=== PATIENT | female | born 1990 | race Caucasian/White ===

== ENCOUNTER 2022-04-25 10:38 | Emergency (ER) | payer OTHER, SELFPAY ==
--- NOTE | ~2022-04-25 | XR_ITS ---
EXAMINATION: XR lumbar spine min 4V DATE: 04/25/2022 12:59 INDICATION: Low back pain. TECHNIQUE: 5 views of lumbar spine were obtained. COMPARISON: None. FINDINGS: Bone alignment is normal. Vertebral body heights and intervertebral disc heights are normal . The facet joints are normal. IMPRESSION: 1. Normal lumbar spine. Reviewed, dictated and finalized at location A. IMPRESSION: 1. Normal lumbar spine.
[2022-04-25 11:03] VITALS: BP 116/80; PULSE 79; RESP 18; TEMP 36.8; O2SAT 98
--- NOTE | 2022-04-25 12:46 | ED.BACK ---
HPI - Back Pain/Injury General Chief Complaint: Back Pain/Injury Stated Complaint: L FLANK PAIN Time Seen by Provider: 04/25/22 11:13 Source: patient Mode of arrival: ambulatory Limitations: no limitations History of Present Illness HPI Narrative: Patient is a 31-year-old female who presents the ED with report of left lower back pain. Patient reports she woke up Monday morning with the pain. She states she has been trying to work out lately, but denies any known injury or heavy lifting, aside from lifting her toddler. She denies any other unusual activity. She has been taking ibuprofen at home with minimal relief. Reports pain is worse with twisting in certain directions, bending over, straightening left leg while sitting. No bowel or bladder incontinence, saddle anesthesia, weakness of legs, dysuria, hematuria, abdominal pain, nausea, vomiting. Related Data Allergies Allergy/AdvReac Type Severity Reaction Status Date / Time No Known Allergies Allergy Verified 04/25/22 11:33 Review of Systems Review of Systems: CONSTITUTIONAL: Denies fever, chills, or sweats. CARDIOVASCULAR: Denies chest pain. RESPIRATORY: Denies dyspnea. GASTROINTESTINAL: Denies abdominal pain, incontinence, nausea, vomiting, or diarrhea. GENITOURINARY: Denies incontinence, dysuria or hematuria. MUSCULOSKELETAL: Reports L lower back pain. NEUROLOGIC: Denies tingling, numbness, or weakness. All systems reviewed & are unremarkable except as noted in HPI and below PMFSH Past Medical History Medical History (Updated 04/25/22 @ 13:11 by Karolyn Oro PA-C) No pertinent past medical history Surgical History Surgical History (Updated 04/25/22 @ 13:11 by Karolyn Oro PA-C) No pertinent past surgical history Social History Social History (Updated 04/25/22 @ 13:11 by Karolyn Oro PA-C) Smoking status: Never smoker Exam Narrative: GENERAL: Well appearing, well-nourished, non-toxic, in no acute distress. HEAD: Normocephalic, atraumatic. NECK: Supple. No adenopathy, no masses. RESPIRATORY: Airway patent, respirations nonlabored. Clear to auscultation bilaterally, no rales, rhonchi, wheezing. CARDIOVASCULAR: Regular rate and rhythm without murmurs, rubs, or gallops. Peripheral pulses 2+ and equal bilaterally. ABDOMINAL: Soft, nontender, nondistended, no hepatosplenomegaly. Normoactive BS. MUSCULOSKELETAL: Moves all extremities. Strength/ROM intact without gross deformities. No midline thoracic or lumbar spinal tenderness. TTP in L sided lumbosacral region, point tenderness over L SI joint. + SLR on L. SKIN: Warm, dry, normal color. No rashes. NEURO: A&O X3. Speech clear. Cranial nerves II-XII grossly intact. Steady gait. No ataxic movements. Strength equal in lower extremities bilaterally. PSYCHIATRIC: Appropriate mood and affect. Normal interaction. Course Vital Signs Vital signs: Vital Signs Temperature 98.3 F 04/25/22 11:03 Pulse Rate 79 04/25/22 11:03 Respiratory Rate 18 04/25/22 11:03 Blood Pressure 116/80 04/25/22 11:03 Pulse Oximetry 98 04/25/22 11:03 Oxygen Delivery Room Air 04/25/22 11:03 Temperature 98.3 F 04/25/22 11:03 Pulse Rate 79 04/25/22 11:03 Respiratory Rate 18 04/25/22 11:03 Blood Pressure 116/80 04/25/22 11:03 Pulse Oximetry 98 04/25/22 11:03 Oxygen Delivery Room Air 04/25/22 11:03 MDM - Back Pain/Injury MDM Narrative Medical decision making narrative: Patient's pain is positional and localized to paraspinal muscles without signs of cord compression or cauda equina. Normal neurologic exams. No fever noted and no significant risk factors for osteomyelitis or spinal epidural abscess. No symptoms or signs to suggest pain is referred from abdominal or source. Patient ambulates with a steady gait and is felt to be a reasonable candidate for continued outpatient management. She has a follow-up appointment with her primary care doctor this Monday. Will pre
== END 2022-04-25 13:28 | disposition home or self-care (01) ==
PROVIDERS: Emergency Provider Emergency Medicine
DX: S39.012A Strain of muscle, fascia and tendon of lower back, initial encounter (principal); X58.XXXA Exposure to other specified factors, initial encounter
CPT/HCPCS: 72110; 99283

== ENCOUNTER 2025-04-30 10:32 | Emergency (ER) | payer MEDICAID, SELFPAY ==
--- OUTSIDE RECORDS SUMMARY | 2007-12-13 11:00 | XMS_ITS | Continuity of Care Document ---
Author Organization [employer] [facility] Address [address] [place] [address] Phone Care Team Providers Care Registration Manager Name Role Phone No Information Unavailable Unavailable Allergies, Adverse Reactions, Alerts Substance Reaction Status Criticality No Known Allergies Active No Inform ation Medications Medication Instructions Dosage Effective Dates (start - stop) Status Comments PLUS 27 MG-1 MGTABLET PLUS-27 MG IRON<><> 1 TAB by mouth (PO) every day.<><> Before meals.<> Take until all medication is finished.<><>DISPENSE: 30 day supply.<>REFILLS: 12<>Provider: VAL CHARLES NP<>[facility]><> - Active Procedures Procedure Date URNLS DIP STICK/TABLET RGNT AUTO W/O JENNIFER CHYLMD TRACH, DNA, AMP PROBE PERIODIC COMPREHENSIVE PREVENTIVE MED RE E/M; ESTABLISHED PATIENT; 07-02 N.GONORRHOEAE, DNA, AMP PROB URINE TEST, BY VISUAL COLOR CO MPARISON METHODS Results Test Name Date and Time Measure Units Reference Range Abnormal Flag Status Comments Panel Description: CHLAMYDIA/N. GONORRHOEAE RNA, TMA Preliminary C. TRACHOMATIS RNA, TMA 16:17:00 Preliminary N. GONORRHOEAE RNA, TMA 16:17:00 Preliminary Panel Description: CHLAMYDIA/N. GONORRHOEAE RNA, TMA Final C. TRACHOMATIS RNA, TMA 09:55:00 Not Detected Final Reference range: Not Detected N. GONORRHOEAE RNA, TMA 09:55:00 Not detected Final Reference range: Not Detected Panel Description: URINALYSIS, MACROSCOPIC Kayleen l COLOR 16:17:00 YELLOW YELLOW N Final APPEARANCE 16:17:00 CLEAR CLEAR N Final SPECIFIC GRAVITY 16:17:00 1.010 1.001-1.035 N Final PH 16:17:00 5.5 5.0-8.0 N Final GLUCOSE 16:17:00 NEGATIVE NEGATIVE N Final BILIRUBIN 16:17:00 NEGATIVE NEGATIVE N Final KETONES 16:17:00 NEGATIVE NEGATIVE N Final OCCULT BLOOD 16:17:00 NEGATIVE NEGATIVE N Final PROTEIN 16:17:00 NEGATIVE NEGATIVE N Final NITRITE 16:17:00 NEGATIVE NEGATIVE N Final LEUKOCYTE ESTERASE 16:17:00 2+ NEGATIVE A Final Panel Description: URINALYSIS, MACROSCOPIC Kayleen l COLOR 09:55:00 YELLOW YELLOW N Final APPEARANCE 09:55:00 CLEAR CLEAR N Final SPECIFIC GRAVITY 09:55:00 1.010 1.001-1.035 N Final PH 09:55:00 5.5 5.0-8.0 N Final GLUCOSE 09:55:00 NEGATIVE NEGATIVE N Final BILIRUBIN 09:55:00 NEGATIVE NEGATIVE N Final KETONES 09:55:00 NEGATIVE NEGATIVE N Final OCCULT BLOOD 09:55:00 NEGATIVE NEGATIVE N Final PROTEIN 09:55:00 NEGATIVE NEGATIVE N Final NITRITE 09:55:00 NEGATIVE NEGATIVE N Final LEUKOCYTE ESTERASE 09:55:00 2+ NEGATIVE A Final Panel Description: HCG, QL, URINE Final HCG, QL, URINE 16:17:00 POSITIVE NEGATIVE A Final Panel Description: HCG, QL, URINE Final HCG, QL, URINE 09:55:00 POSITIVE NEGATIVE A Final Advance Directives Directive Yes / No Effective Date File Name No Information Encounters Encounter Description Practice Location Reason(s) For Visit Diagnoses Date Provider Providers Copied on Encounter Oscar mendes [address], [place], [place], [id number] , tel: [phone] No Information No Information PERIODIC COMPREHENSIVE PREVENTIVE MED REE/M; ESTABLISHED PATIENT; 07-02 Oscar mendes, [address], [place], [place], [id number] , tel: [phone] Oscar On [employer] HAND EXAMINATIONSCREE N FOR VENERAL DIS No Information Family History Family Member Type Diagnosis Age At Onset No Information Payers Payer name Insurance type Covered green party ID Authoriza tion(s) No Information Social History Type Description Quantity Date Captured Comments Sex Female Smoking Status No Information Chief Complaint And Reason For Visit No Information Reason For Referral Reason For Referral No Information History Of Present Illness Encounter Date Complaint History Of Prese nt Illness No Information Functional Status Date Functional Assessmen t No Information Instructions Date Instruction Additional Infor mation No Information Assessments Type Assessment Date No Information Patient Care Teams Name Effective Dates (start - stop) Status Members No Information
[2025-04-30 10:37] VITALS: BP 120/83; PULSE 84; RESP 16; TEMP 36.2; O2SAT 100
[2025-04-30 12:03] LABS: BEDSIDEPREGUCG Positive (Negative)
[2025-04-30 12:15] LABS: Hematocrit 35.2 % (37.0-47.0); Hemoglobin 11.8 g/dL (12.0-15.0); Immature Granulocyte Percent A 0.4 % (0-0.5); Lymphocytes Absolute Auto 1.97 K/mm3 (0.9-3.2); Mean Corpuscular HGB Conc 33.5 g/dl (32-36); Mean Corpuscular Hemoglobin 31.1 pg (26-34); Mean Corpuscular Volume 92.6 fl (80-100); Nucleated Red Blood Cells Absolute Auto 0.000 K/mm3 (0.0-0.012); Nucleated Red Blood Cells Perc 0.0 % (0.0-0.2); Platelet Count Result 365 k/mm3 (150-375); Red Blood Count 3.80 M/mm3 (4.2-5.4); White Blood Count 13.4 K/mm3 (4.5-10.0)
[2025-04-30 12:32] LABS: Alanine Aminotransferase 26 U/L (6-35); Albumin Level 4.2 g/dL (3.5-5.1); Alkaline Phosphatase 92 U/L (38-126); Anion Gap 9 mmol/L (4-12); Aspartate Amino Transferase 34 U/L (14-36); Bilirubin,Total 0.5 mg/dL (0.2-1.3); Blood Urea Nitrogen 6 mg/dL (7-17); Calcium 9.3 mg/dL (8.4-10.2); Carbon Dioxide 22 mmol/L (22-30); Chloride 104 mmol/L (98-107); Estimated CRCL calculation 141 ml/min; Estimated Glomerular Filt Rate > 60; Glucose 85 mg/dL (65-110); Lipase 62 U/L (23-300); Potassium 4.0 mmol/L (3.4-5.0); Sodium 135 mmol/L (137-145); Total Protein 7.2 g/dL (6.3-8.2)
[2025-04-30 12:33] LABS: Add Urine Microscopic? YES; Appearance Urine Turbid (Clear); Glucose Urine UA Negative (Negative); Leukocyte Esterase Ur 3+ LEU/UL (Negative); Need Manual Microscopic Reviewed; Nitrate Urine Negative (Negative); Non Pathogenic Casts 0-2; Specific Grav Ur 1.019 (1.001-1.035)
--- NOTE | 2025-04-30 13:15 | ED_ITS ---
HPI - Nausea/Vomiting/Diarrhea General Chief complaint: Nausea/Vomiting/Diarrhea Stated complaint: 14WKS PREG N/V Time Seen by Provider: 04/30/25 12:01 History of Present Illness HPI Narrative: 34-year-old female approximate 14 weeks presenting to the emergency department with some nonspecific nausea and vomiting. States that she has had some difficulty tolerating oral intake over last 2 days but is hungry and wanting food and water. Denies any diarrhea, abdominal pain, fever, chills. No urinary complaints or urinary discharge. No vaginal bleeding. Is in the middle of switching OB GYNs and has not been able to get prescriptions for Zofran or other antiemetics. Has not tried anything for symptom control at home. Was otherwise in her normal state of health. Denies any traumatic injuries or recent illnesses. Related Data Allergies Allergy/AdvReac Type Severity Reaction Status Date / Time No Known Allergies Allergy Verified 04/30/25 10:33 Review of Systems 2 Review of Systems: [facility] Past Medical History Medical History No pertinent past medical history Surgical History Surgical History No pertinent past surgical history Social History Social History Smoking status: Never smoker Exam 2 Narrative: GENERAL: Overall very well-appearing, in good spirits, not any acute distress, no retching during examination. HEAD: Normocephalic and atraumatic EYES: Pupils equal reactive to light ENT: Nares clear, no rhinorrhea or epistaxis. Mucous membranes moist. NECK: Supple. CHEST: No tachypnea, symmetric chest rise noted. ABDOMEN: Nondistended EXTREMITIES: Normal range of motion. No extremity edema noted SKIN: Warm, dry, no rash. NEURO: No focal deficits, alert x3 PSYCH: Normal mood and affect Course Vital Signs Vital signs: Vital Signs Temperature 36.2 C L 04/30/25 10:37 Pulse Rate 84 04/30/25 10:37 Respiratory Rate 16 04/30/25 10:37 Blood Pressure 120/83 04/30/25 10:37 Pulse Oximetry 100 04/30/25 10:37 Temperature 36.2 C L 04/30/25 10:37 Pulse Rate 76 04/30/25 15:35 Respiratory Rate 16 04/30/25 15:35 Blood Pressure 116/70 04/30/25 15:35 Pulse Oximetry 100 04/30/25 15:35 MDM - Nausea/Vomiting/Diarrhea MDM Narrative Medical decision making narrative: 34-year-old female approximate 14 weeks presenting to the emergency department with some nonspecific nausea and vomiting. States that she has had some difficulty tolerating oral intake over last 2 days but is hungry and wanting food and water. Denies any diarrhea, abdominal pain, fever, chills. No urinary complaints or urinary discharge. No vaginal bleeding. Is in the middle of switching OB GYNs and has not been able to get prescriptions for Zofran or other antiemetics. Has not tried anything for symptom control at home. Was otherwise in her normal state of health. Denies any traumatic injuries or recent illnesses. Patient is overall very well-appearing with normal vital signs here. No tachycardia, fever, hypoxemia or blood pressure anomalies. Largely benign physical examination. Given her nonspecific nausea vomiting likely nausea vomiting the 2nd versus gastroenteritis versus less likely intra- abdominal infection or urinary tract infection. Workup underway including blood work and urinalysis. Patient given fluids for rehydration as well as Zofran. Urinalysis did show 4+ bacteria and convincing evidence of urinary tract infection although there is some squamous cells. Will send this for culture and treat empirically for bacteriuria in with dose of Rocephin IV while workup underway. Laboratory studies here show slight leukocytosis of 13.4 and in the setting of evidence of urinary tract infection will be treated with antibiotics and discharged home with antibiotics for next 7 days. Electrolytes are unremarkable. Normal creatinine. Normal glucose and LFTs. Normal lipase. Patient hydrated here with fluids, will be discharged home with Keflex and Zofran and return precautions with OB follow-up. Medical Records Attestation: I reviewed the patient's medical records. Lab Data Attestation: I reviewed the patient's lab results. 04/30/25 11:51 04/30/25 11:51 Labs: Lab Results 04/30/25 04/30/25 Range/Units 11:51 12:00 WBC 13.4 H (4.5-10.0) K/mm3 RBC 3.80 L (4.2-5.4) M/mm3 Hgb 11.8 L (12.0-15.0) g/dL Hct 35.2 L (37.0-47.0) % MCV 92.6 (80-100) fl MCH 31.1 (26-34) pg MCHC 33.5 (32-36) g/dl RDW 12.5 (11.5-14.5) % Plt Count 365 (150-375) k/mm3 MPV 9.8 (7.4-10.4) fl Immature Gran % (Auto) 0.4 (0-0.5) % Neut % (Auto) 81.2 H (45.5-73.1) % Lymph % (Auto) 14.7 L (18.3-44.2) % Dickenson % (Auto) 3.2 (2.6-8.5) % Eos % (Auto) 0.2 (0-4.4) % Baso % (Auto) 0.3 (0.2-1.2) % Lymph # (Auto) 1.97 (0.9-3.2) K/mm3 Dickenson # (Auto) 0.4 (0.1-0.6) K/mm3 Eos # (Auto) 0.0 (0-0.3) K/mm3 Baso # (Auto) 0.0 (0.0-0.1) K/mm3 Abs Immat Gran (auto) 0.06 H (0.00-0.031) K/mm3 Absolute Neuts (auto) 10.9 H (1.3-6.7) K/mm3 Absolute Nucleated RBC 0.000 (0.0-0.012) K/mm3 Nucleated RBC % 0.0 (0.0-0.2) % Sodium 135 L (137-145) mmol/L Potassium 4.0 (3.4-5.0) mmol/L Chloride 104 (98-107) mmol/L Carbon Dioxide 22 (22-30) mmol/L Anion Gap 9 (4-12) mmol/L BUN 6 L (7-17) mg/dL Creatinine 0.46 L (0.7-1.0) mg/dL Estim Creat Clear Calc 141 ml/min Estimated GFR > 60 (59 - ) Glucose 85 (65-110) mg/dL Calcium 9.3 (8.4-10.2) mg/dL Total Bilirubin 0.5 (0.2-1.3) mg/dL AST 34 (14-36) U/L ALT 26 (6-35) U/L Alkaline Phosphatase 92 (38-126) U/L Total Protein 7.2 (6.3-8.2) g/dL Albumin 4.2 (3.5-5.1) g/dL Lipase 62 (23-300) U/L Urine Color Yellow (Yellow) Urine Appearance Turbid H (Clear) Urine pH 5.5 (5.0-9.0) Ur Specific [place] 1.019 (1.001-1.035) Urine Protein Negative (Negative) mg/dL Urine Glucose (UA) Negative (Negative) mg/dL Urine Ketones 3+ H (Negative) mg/dL Ur Blood (Man) Negative (Negative) Urine Nitrate Negative (Negative) Urine Bilirubin Negative (Negative) Urine Urobilinogen 1.0 (<2.0) mg/dL Add Ur Microanalysis Reviewed Leukocyte Esterase Rfl 3+ H (Negative) GIANCARLO/UL Urine RBC 0-2 (0-2) /hpf Urine WBC 51-100 H (0-3) /hpf Ur Squamous Epith Cells Many H (Few) /hpf Urine Bacteria 4+ H /hpf Urine Casts 0-2 POC Urine HCG, Qual Positive (Negative) Discharge Plan Discharge Clinical Impression: UTI (urinary tract infection), Nausea and vomiting during Patient Disposition: Home Condition: Stable Instructions: Antibiotic Form, Nausea and Vomiting in (ED), Urinary Tract Infection in (ED) Additional Instructions: Your laboratory studies show a urinary tract infection evidence and we will treat this with a course of antibiotics for next 7 days. Will also send you home with some nausea controlling medications as needed. Follow-up with your OBGYN. Return if you start developing intractable fevers, developing abdominal pain, back pain, flank pain, inability to tolerate oral intake or any other issues. Patient Language: Kyrgyz Prescriptions: New cephalexin 500 mg capsule 500 mg PO Q6H 7 Days Qty: 28 0RF ondansetron 4 mg tablet,disintegrating 4 mg PO Q8H PRN (Reason: nausea and vomiting) Qty: 20 0RF No Action naproxen 500 mg tablet 500 mg PO BID PRN (Reason: pain) Qty: 20 0RF cyclobenzaprine 5 mg tablet 5 mg PO TID PRN (Reason: muscle spasm) Qty: 10 0RF Follow-up/Referrals: UNKNOWN,DOCTOR [Primary Care Provider] Time of Disposition: 14:28
[2025-04-30] MEDS: ONDANSETRON INJ 4 MG/2 ML VIAL IV PUSH (13:29)
[2025-04-30] MEDS: cefTRIAXone 2 GM in SODIUM CHLORIDE 0.9% IV 100 ML 200 ML IVPB (13:33)
--- OUTSIDE RECORDS SUMMARY | 2025-04-30 14:02 | XMS_ITS | Data Portability ---
Author Organization [facility] Gordy Bebe Address [address] [place] [address] Care Team Providers Care Roll Edge Stitcher Hand Name Role Phone ESTELA ANAND Primary Care Provider Assessment Encounter Date Assessment Date Assessment LastModified by Organization Details LastModified Time 02/03/2025 02/03/2025 PAP was normal. I told her she was due for a repeat in 2026, but given her age she will actually be due in 2028. [email or web address] Not available 02/03/2025 10:06:54 Plan of Treatment Reminders Order Date Submit Date Provider Last Modified By Organization Details Last Modified Time Details Appointments None recorded. Lab unlisted lab - nuswab bv, CT/GC/TV 2023 024 [facility], [address] [place] [address], [address], [place], [address], 4 06:25:50 cytology report, thin prep, smear or scraping, cervical or vaginal 2023 024 [facility], [address], [address], [place], [address], 4 15:11:10 TSH, ultra-sens itive, serum 2022 023 [facility], [address], [address], [place], [address], 3 08:22:08 drug screen, urine 2022 023 [facility], [address], [address], [place], [address], 3 19:08:58 CBC w/ auto diff 2022 023 [facility], [address] [facility] [address], [address], [place], [address], 3 06:17:49 CMP, serum or plasma 2022 023 [facility], [address] [facility] [address], [address], [place], [address], 3 06:17:48 lipid panel, serum 2022 023 [facility], [address] [facility] [address], [address], [place], [address], 3 06:17:47 HbA1c (hemoglobi n A1c), blood 2022 023 [facility], [address], [address], [place], [address], 3 08:22:09 Referral None recorded. Procedures None recorded. Surgeries None recorded. Imaging XR, lumbosacra l spine, 2 or 3 view 2023 024 [facility] [address] [place], [address], 4 14:45:03 XR, hip + pelvis, bilateral 2023 024 [facility] ([facility]), [address] [place], [address], 4 14:47:33 Medication Orders valacyclov ir 500 mg tablet 2024 025 [facility] [address], [address] [place] [address], [address], 5 10:08:29 albuterol sulfate HFA 90 mcg/actuat ion aerosol inhaler 2024 025 [facility] [address], [address] [place] [address], [address], 5 10:08:28 valacyclov ir 500 mg tablet 2024 025 [facility] [address], [address] [place] [address], [address], 5 09:42:27 Augmentin 875 mg-125 mg tablet 2024 025 [facility] [address], [address] [place] [address], [address], 5 09:50:40 albuterol sulfate HFA 90 mcg/actuat ion aerosol inhaler 2023 024 [facility] [address] [place], [address], 4 10:14:24 meloxicam 15 mg tablet 2023 025 [facility] [address], [address] [place], [address], 5 09:39:49 naproxen 500 mg tablet 2022 024 [facility] [address], [address] [place], [address], 4 09:51:18 Patient TargetsNo targets recorded. Patient Instructions Encounter Date Encounter Id Patient Instructions Last Modified By Organization Details Last Modified Time 04/11/2023 [id number] A healthy lifestyle: care instructions [email or web address] Not available 04/11/2023 12:52:11 03/12/2024 [id number] A healthy lifestyle: care instructions [email or web address] Not available 03/12/2024 10:18:20 Quitting Tobacco : Care Instructions Not available 03/12/2024 10:14:15 cough: care instructions [email or web address] Not available 03/12/2024 10:14:15 back care and preventing injuries: care instructions [email or web address] Not available 03/12/2024 10:14:15 Reason for Referral None Reported. Results Created Date Observation Date Name Description Value Unit Range Abnormal Flag Note LastModifiedBy Organization Detail LastModifiedTime 04/11/2004/11/2023 LIPID PANEL cholesterol, total 133 mg/dL 100-[address] [facility] [address] [place] [address], [address], 04/12/2023 06:17:47 04/11/20 23 04/11/2023 LIPID PANEL triglyceride s 86 mg/dL 0-149 Not Available [facility] [address] [place] [address], [address], 04/12/2023 06:17:47 04/11/20 23 04/11/2023 LIPID PANEL HDL cholesterol 57 mg/dL 40-999 Not Available [facility] [address] [place] [address], [address], 04/12/2023 06:17:47 04/11/2004/11/2023 LIPID PANEL VLDL cholesterol brianna 17 mg/dL 5-40 Not Available [facility] [address] [place] [address], [address], 04/12/2023 06:17:47 04/11/20 23 04/11/2023 LIPID PANEL LDL chol calc (nih) 70 mg/dL 0-99 Not Available [facility] [address] [place] [address], [address], 04/12/2023 06:17:47 04/11/20 23 04/11/2023 COMP. METAB OLIC PANEL (14) glucose 82 mg/dL 70-[address] [facility] [address] [place] [address], [address], 04/12/2023 06:17:48 04/11/20 23 04/11/2023 COMP. METAB OLIC PANEL (14) BUN 16 mg/dL 6-[address] [facility] [address] [place] [address], [address], 04/12/2023 06:17:48 04/11/20 23 04/11/2023 COMP. METAB OLIC PANEL (14) creatinine 1.08 mg/dL 0.76-[address] [facility] [address] [place] [address], [address], 04/12/2023 06:17:48 04/11/20 23 04/11/2023 COMP. METAB OLIC PANEL (14) eGFR 70 >=60 Units for eGFR value s are mL/mi n/1.7 3 The eGFR Calcu latio n has not been valid ated for patie nts under the age of 18. If test resul ts are displ ayed for a patie nt under the age of 18, disre shaun that value . Not Available [facility] [address] [place] [address], [address], 04/12/2023 06:17:48 04/11/20 23 04/11/2023 COMP. METAB OLIC PANEL (14) BUN/creatini ne ratio 15 9-23 Not Available [facility] [address] [place], [address], 04/12/2023 06:17:48 04/11/20 23 04/11/2023 COMP. METAB OLIC PANEL (14) sodium 144 mmol/ L 134-[address] [facility] [address] [place], [address], 04/12/2023 06:17:48 04/11/20 23 04/11/2023 COMP. METAB OLIC PANEL (14) potassium 4.4 mmol/ L 3.5-5. [address] [facility] [address] [place], [address], 04/12/2023 06:17:48 04/11/2004/11/2023 COMP. METAB OLIC PANEL (14) chloride 109 mmol/ L 96-106 above high normal Not Available [facility] [address] [place], [address], 04/12/2023 06:17:48 04/11/20 23 04/11/2023 COMP. METAB OLIC PANEL (14) carbon dioxide, total 25 mmol/ L 20-[address] [facility] [address] [place], [address], 04/12/2023 06:17:48 04/11/20 23 04/11/2023 COMP. METAB OLIC PANEL (14) calcium 9.3 mg/dL 8.7-[address] [facility] [address] [place], [address], 04/12/2023 06:17:48 04/11/20 23 04/11/2023 COMP. METAB OLIC PANEL (14) protein, total 6.6 g/dL 6.0-8. [address] [facility] [address] [place], [address], 04/12/2023 06:17:48 04/11/2004/11/2023 COMP. METAB OLIC PANEL (14) albumin 4.3 g/dL 3.9-4. [address] [facility] [address] [place], [address], 04/12/2023 06:17:48 04/11/2004/11/2023 COMP. METAB OLIC PANEL (14) globulin, total 2.3 g/dL 1.5-4. [address] [facility] [address] [place], [address], 04/12/2023 06:17:48 04/11/20 23 04/11/2023 COMP. METAB OLIC PANEL (14) A/G ratio 2.0 1.2-2. [address] [facility] [address] [place] [address], [address], 04/12/2023 06:17:48 04/11/20 23 04/11/2023 COMP. METAB OLIC PANEL (14) bilirubin, total 0.2 mg/dL 0.0-1. [address] [facility] [address] [place] [address], [address], 04/12/2023 06:17:48 04/11/2004/11/2023 COMP. METAB OLIC PANEL (14) alkaline phosphatase 126 IU/L 44-121 above high normal Not Available [facility] [address] [place] [address], [address], 04/12/2023 06:17:48 04/11/20 23 04/11/2023 COMP. METAB OLIC PANEL (14) AST (SGOT) 15 IU/L 0-40 Not Available [facility] [address] [place] [address], [address], 04/12/2023 06:17:48 04/11/20 23 04/11/2023 COMP. METAB OLIC PANEL (14) ALT (SGPT) 13 IU/L 0-32 Not Available [facility] [address] [place] [address], [address], 04/12/2023 06:17:48 04/11/20 23 04/11/2023 CBC WITH DIFFE RENTI AL/PL ATELE T WBC 9.2 x10e3 /uL 3.4-[address] [facility] [address] [place] [address], [address], 04/12/2023 06:17:49 04/11/20 23 04/11/2023 CBC WITH DIFFE RENTI AL/PL ATELE T RBC 4.23 x10e6 /uL 3.77-[address] [facility] [address] [place], [address], 04/12/2023 06:17:49 04/11/2004/11/2023 CBC WITH DIFFE RENTI AL/PL ATELE T hemoglobin 12.8 g/dL 11.1-[address] [facility] [address] [place], [address], 04/12/2023 06:17:49 04/11/2004/11/2023 CBC WITH DIFFE RENTI AL/PL ATELE T hematocrit 40.3 % 34.0-[address] [facility] [address] [place], [address], 04/12/2023 06:17:49 04/11/2004/11/2023 CBC WITH DIFFE RENTI AL/PL ATELE T MCV 95 fL 79-[address] [facility] [address] [place], [address], 04/12/2023 06:17:49 04/11/2004/11/2023 CBC WITH DIFFE RENTI AL/PL ATELE T MCH 30.3 pg 26.6-[address] [facility] [address] [place], [address], 04/12/2023 06:17:49 04/11/2004/11/2023 CBC WITH DIFFE RENTI AL/PL ATELE T MCHC 31.8 g/dL 31.5-[address] [facility] [address] [place], [address], 04/12/2023 06:17:49 04/11/2004/11/2023 CBC WITH DIFFE RENTI AL/PL ATELE T RDW 12.8 % 11.5-[address] [facility] [address] [place], [address], 04/12/2023 06:17:49 04/11/2004/11/2023 CBC WITH DIFFE RENTI AL/PL ATELE T platelets 320 x10e3 /uL 150-[address] [facility] [address] [place], [address], 04/12/2023 06:17:49 04/11/2004/11/2023 CBC WITH DIFFE RENTI AL/PL ATELE T neutrophils 66 % notest b. Not Available [facility] [address] [place] [address], [address], 04/12/2023 06:17:49 04/11/2004/11/2023 CBC WITH DIFFE RENTI AL/PL ATELE T lymphs 26 % notest b. Not Available [facility] [address] [place] [address], [address], 04/12/2023 06:17:49 04/11/2004/11/2023 CBC WITH DIFFE RENTI AL/PL ATELE T monocytes 6 % notest b. Not Available [facility] [address] [place] [address], [address], 04/12/2023 06:17:49 04/11/2004/11/2023 CBC WITH DIFFE RENTI AL/PL ATELE T eos 1 % notest b. Not Available [facility] [address] [place], [address], 04/12/2023 06:17:49 04/11/2004/11/2023 CBC WITH DIFFE RENTI AL/PL ATELE T basos 1 % notest b. Not Available [facility] [address] [place], [address], 04/12/2023 06:17:49 04/11/2004/11/2023 CBC WITH DIFFE RENTI AL/PL ATELE T neutrophils (absolute) 6.0 x10e3 /uL 1.4-7. [address] [facility] [address] [place] [address], [address], 04/12/2023 06:17:49 04/11/2004/11/2023 CBC WITH DIFFE RENTI AL/PL ATELE T lymphs (absolute) 2.4 x10e3 /uL 0.7-3. [address] [facility] [address] [place], [address], 04/12/2023 06:17:49 04/11/2004/11/2023 CBC WITH DIFFE RENTI AL/PL ATELE T monocytes(ab solute) 0.6 x10e3 /uL 0.1-0. [address] [facility] [address] [place] [address], [address], 04/12/2023 06:17:49 04/11/2004/11/2023 CBC WITH DIFFE RENTI AL/PL ATELE T eos (absolute) 0.1 x10e3 /uL 0.0-0. [address] [facility] [address] [place] [address], [address], 04/12/2023 06:17:49 04/11/2004/11/2023 CBC WITH DIFFE RENTI AL/PL ATELE T baso (absolute) 0.1 x10e3 /uL 0.0-0. [address] [facility] [address] [place] [address], [address], 04/12/2023 06:17:49 04/11/2004/11/2023 CBC WITH DIFFE RENTI AL/PL ATELE T immature granulocytes 0.3 % notest b. Not Available [facility] [address] [place], [address], 04/12/2023 06:17:49 04/11/2004/11/2023 CBC WITH DIFFE RENTI AL/PL ATELE T immature grans (abs) 0.0 x10e3 /uL 0.0-0. [address] [facility] [address] [place], [address], 04/12/2023 06:17:49 04/11/20 23 04/11/2023 CBC WITH DIFFE RENTI AL/PL ATELE T NRBC 0 % 0-[address] [facility] [address] [place], [address], 04/12/2023 06:17:49 04/11/20 23 04/12/2023 TSH RFX ON ABNOR MAL TO FREE T4 TSH 0.567 uIU/m L 0.450- 4.500 Not Available [facility] ([facility]) [address] [facility], [place], [address], 04/12/2023 08:22:08 04/11/20 23 04/12/2023 HEMOG LOBIN A1C hemoglobin A1C 5.4 % 4.8-5. 6 Predi abete s: 5.7 - 6.4 Diabe checo: >6.4 Glyce quinten contr ol for adult s with diabe checo: <7.0 Not Available [facility] ([facility]) [address] [facility], [place], [address], 04/12/2023 08:22:09 04/11/20 23 04/18/2023 TOXAS SURE SELEC T 13 (MW) summary report (summary) FINAL ===== ===== ===== ===== ===== ===== ===== ===== ===== ===== ===== ===== ===== === TOXAS SURE SELEC T 13 (MW) ===== ===== ===== ===== ===== ===== ===== ===== ===== ===== ===== ===== ===== === Test Resul t Flag Units Drug Prese nt Carbo xy-TH C 77 ng/mg creat Carbo xy-TH C is a metab olite of tetra hydro canna binol (THC) . Sourc e of THC is most commo nly herba l marij uana or marij uana- based produ cts, but THC is also prese nt in a sched uled presc ripti on medic ation . Trace amoun ts of THC can be prese nt in hemp and canna bidio l (CBD) produ cts. This test is not inten ded to disti nguis h betwe en delta -9-te trahy droca nnabi nol, the predo minan t form of THC in most herba l or marij uana- based produ cts, and delta -8-te trahy droca nnabi nol. ===== ===== ===== ===== ===== ===== ===== ===== ===== ===== ===== ===== ===== === Test Resul t Flag Units Ref Range Creat inine 141 mg/dL >=20 ===== ===== ===== ===== ===== ===== ===== ===== ===== ===== ===== ===== ===== === Decla red Medic ation s: Medic ation list was not provi ded. ===== ===== ===== ===== ===== ===== ===== ===== ===== ===== ===== ===== ===== === For clini brianna consu ltati on, pleas e call . ===== ===== ===== ===== ===== ===== ===== ===== ===== ===== ===== ===== ===== === Not Available [facility] ([facility]) [address] [facility], [place], [address], 04/18/2023 19:08:57 04/11/20 23 04/18/2023 TOXAS SURE SELEC T 13 (MW) pdf . Not Available [facility] ([facility]) [address] [facility], [place], [address], 04/18/2023 19:08:57 05/29/2005/30/2024 NUSWA B BV, CT/GC /TV atopobium vaginae HIGH - 2 score abnormal Not Available [facility] ([facility]) [address] [facility], [place], [address], 05/31/2024 06:25:50 05/29/2005/30/2024 NUSWA B BV, CT/GC /TV bvab 2 LOW - 0 score Not Available [facility] ([facility]) [address] [facility], [place], [address], 05/31/2024 06:25:50 05/29/20 24 05/30/2024 NUSWA B BV, CT/GC /TV megasphaera 1 HIGH - 2 score abnormal Calcu late total score by shira g the 3 indiv idual bacte rial vagin osis (BV) markcinthya r score s toget her. Total score is inter prete d as follo ws: Total score 0-1: Indic ates the absen ce of BV. Total score 2: Indet ermin ate for BV. Addit ional clini brianna data shoul d be evalu ated to estab carmita a diagn osis. Total score 3-6: Indic ates the prese nce of BV. Not Available [facility] ([facility]) [address] [facility], [place], [address], 05/31/2024 06:25:50 05/29/20 24 05/31/2024 NUSWA B BV, CT/GC /TV trich vag by CIERRA NEGATI VE negati ve Not Available [facility] ([facility]) [address] [place], [address], 05/31/2024 06:25:50 05/29/20 24 05/31/2024 NUSWA B BV, CT/GC /TV chlamydia trachomatis, CIERRA NEGATI VE negati ve Not Available [facility] ([facility]) [address] [facility], [place], [address], 05/31/2024 06:25:50 05/29/2005/31/2024 NUSWA B BV, CT/GC /TV neisseria gonorrhoeae, CIERRA NEGATI VE negati ve Not Available [facility] ([facility]) [address] [facility], [place], [address], 05/31/2024 06:25:50 05/29/20 24 05/31/2024 IGP,C TNGTV ,APT HPV,R FX16/ 18,45 HPV aptima NEGATI VE negati ve This nucle ic acid ampli ficat ion test detec ts fourt een high- risk HPV types (16,1 8,31, 33,35 ,39,4 5,51, 52,56 ,58,5 9,66, 68) witho ut diffe renti ation . Not Available [facility] ([facility]) [address] [place], [address], 06/05/2024 15:11:10 05/29/20 24 05/31/2024 IGP,C TNGTV ,APT HPV,R FX16/ 18,45 chlamydia, nuc. acid amp NEGATI VE negati ve Not Available [facility] ([facility]) [address] [place], [address], 06/05/2024 15:11:10 05/29/20 24 05/31/2024 IGP,C TNGTV ,APT HPV,R FX16/ 18,45 gonococcus, nuc. acid amp NEGATI VE negati ve Not Available [facility] ([facility]) [address] [facility], [place], [address], 06/05/2024 15:11:10 05/29/20 24 05/31/2024 IGP,C TNGTV ,APT HPV,R FX16/ 18,45 trich vag by CIERRA NEGATI VE negati ve Not Available [facility] ([facility]) [address] [facility], [place], [address], 06/05/2024 15:11:10 05/29/20 24 06/05/2024 IGP,C TNGTV ,APT HPV,R FX16/ 18,45 diagnosis: DORENE BOYLE IVE FOR INTRA EPITH ELIAL LESIO N OR BELLA STORY . Not Available [facility] ([facility]) [address] [facility], [place], [address], 06/05/2024 15:11:10 05/29/20 24 06/05/2024 IGP,C TNGTV ,APT HPV,R FX16/ 18,45 specimen adequacy: DORENE Garrison Satis facto ry for evalu ation . Endoc ervic al and/o r squam ous metap lasti c cells (endo cervi brianna compo nent) are prese nt. Not Available [facility] ([facility]) [address] [facility], [place], [address], 06/05/2024 15:11:10 05/29/20 24 06/05/2024 IGP,C TNGTV ,APT HPV,R FX16/ 18,45 clinician provided ICD10: DORENE Garrison Z12.4 Z11.3 Not Available [facility] ([facility]) [address] [facility], [place], [address], 06/05/2024 15:11:10 05/29/20 24 06/05/2024 IGP,C TNGTV ,APT HPV,R FX16/ 18,45 performed by: DORENE knight, Cytot bobo garrison (ASCP ) Not Available [facility] ([facility]) [address] [place], [address], 06/05/2024 15:11:10 05/29/20 24 06/05/2024 IGP,C TNGTV ,APT HPV,R FX16/ 18,45 . . Not Available [facility] ([facility]) [address] [facility], [place], [address], 06/05/2024 15:11:10 05/29/20 24 06/05/2024 IGP,C TNGTV ,APT HPV,R FX16/ 18,45 note: DORENE Garrison The Pap smear is a scree rosi test desig cristal to aid in the detec tion of marco antonio ligna nt and malig nant condi tions of the uteri ne cervi x. It is not a diagn ostic proce dure and shoul d not be used as the sole means of detec ting cervi brianna cance r. Both false -posi tive and false -nega tive repor ts do occur . Not Available [facility] ([facility]) [address] [place], [address], 06/05/2024 15:11:10 05/29/20 24 06/05/2024 IGP,C TNGTV ,APT HPV,R FX16/ 18,45 test methodology: DORENE Garrison This liqui d based ThinP rep(R ) pap test was scree cristal with the use of an image guide shahla gauthier Not Available [facility] ([facility]) [address] [place], [address], 06/05/2024 15:11:10 05/29/20 24 06/05/2024 IGP,C TNGTV ,APT HPV,R FX16/ 18,45 HPV genotype reflex DORENE Garrison Crite keerthi not met, HPV Genot ype not perfo rmed. Not Available [facility] ([facility]) [address] [place], [address], 06/05/2024 15:11:10 03/14/20 24 03/14/2024 XR, lumbo sacra l spine , 2 or 3 view No observ ation record ed. [facility] [address] [place], [address], 03/21/2024 10:40:00 03/14/20 24 03/14/2024 XR, hip + pelvi s, bilat eral No observ ation record ed. [facility] [address] [place], [address], 03/21/2024 10:40:01 Result Notes None recorded. Problems Name Problem SNOMED Code Status Onset Date Resolution Date Notes Provider Name and Address Organization Details Recorded Time Depressive disorder 85543926 Active 019 DAVIN LEUNG Attn: Accountin g,[address] [facility], [place], [address], [facility] 9 09:24:09 Problem Notes None recorded. Procedures Surgical History Date Name Laterality Status Provider Name and Address Organization Details Recorded Time Cerumen Removal completed DAVIN LEUNG Attn: Account[employer], [place], [address], [facility] 03/16/2023 16:09:57 Imaging Results None recorded. Procedure Notes None recorded. Medical Equipment None Reported. Allergies No known drug allergies Medications Name Sig Start Date Stop Date Status Note LastModified by Organization Details LastModified Time quetiapin e 25 mg tablet 12/16 completed Not Available Not Available Not Available cyclobenz aprine 10 mg tablet Take 1 tablet 3 times a day by oral route as needed for 14 days. 02/03 completed Not Available Not Available Not Available amoxicill in 500 mg capsule TAKE 1 CAPSULE BY MOUTH TWICE DAILY DIRECTED FOR 10 DAYS 12/16 completed Not Available Not Available Not Available buspirone 5 mg tablet TAKE 1 TABLET BY MOUTH TWICE DAILY 02/03 completed Not Available Not Available Not Available Augmentin 875 mg-125 mg tablet one tab po bid. Keep doses twelve hours apart and take each dose with a large glass of water. 02/03 completed Not Available Not Available Not Available trazodone 50 mg tablet 04/11 completed Not Available Not Available Not Available cetirizin e 10 mg tablet Take 1 tablet every day by oral route as directed for 10 days. 01/24 completed Not Available Not Available Not Available azithromy melissa 250 mg tablet TAKE 2 TABLETS BY MOUTH ON DAY 1 AND THEN TAKE 1 TABLET BY MOUTH ONCE A DAY ON DAY 2 THROUGH DAY 5 05/05 completed Not Available Not Available Not Available hydrocodo ne 5 mg-acetam inophen 325 mg tablet TAKE 1 TO 2 TABLETS BY MOUTH EVERY 6 HOURS NEEDED FOR PAIN 08/05 completed Not Available Not Available Not Available meloxicam 15 mg tablet TAKE 1 TABLET BY MOUTH ONCE DAILY 02/03 completed Not Available Not Available Not Available quetiapin e 200 mg tablet active Not Available Not Available Not Available penicilli n V potassium 500 mg tablet 12/16 completed Not Available Not Available Not Available methylphe nidate ER 54 mg tablet,ex tended release 24 hr TAKE 1 TABLET BY MOUTH IN THE MORNING active Not Available Not Available No t Available metronida zole 500 mg tablet one tab po bid 02/03 completed Not Available Not Available Not Available hydroxyzi ne HCl 50 mg tablet 03/12 completed Not Available Not Available Not Available valacyclo vir 500 mg tablet TAKE 1 TABLET BY MOUTH ONCE DAILY INCREASE TO TWO TABLETS BY MOUTH TWICE A DAY FOR ONE DAY IF HAS AN OUTBACK active Not Available Not Available No t Available Tamiflu 75 mg capsule one capsule po bid 02/03 completed Not Available Not Available Not Available quetiapin e 100 mg tablet 12/16 completed Not Available Not Available Not Available guaifenes in 200 mg tablet Take 1 tablet every 4 hours by oral route. 05/05 completed Not Available Not Available Not Available ofloxacin 0.3 % ear drops INSTILL 10 DROPS INTO AFFECTED EAR(S) BY OTIC ROUTE ONCE DAILY X 7 DAYS 04/11 completed Not Available Not Available Not Available amoxicill in 875 mg tablet TAKE 1 TABLET BY MOUTH EVERY 12 HOURS FOR 10 DAYS 03/16 completed Not Available Not Available Not Available trazodone 100 mg tablet active Not Available Not Available Not Available Lice Treatment (permethr in) 1 % topical liquid APPLY A SUFFICIE NT AMOUNT OF SHAMPOO BY TOPICAL ROUTE ONCE ALLOW TO REMAIN ON HAIR FOR 10 MINUTES BEFORE RINSING OFF WITH WATER. CAN RETREAT IN TEN DAYS 02/03 completed Not Available Not Available Not Available benzonata te 100 mg capsule TAKE 1 CAPSULE BY MOUTH THREE TIMES DAILY NEEDED FOR 14 DAYS 05/05 completed Not Available Not Available Not Available guanfacin e 1 mg tablet 03/12 completed Not Available Not Available Not Available hydroxyzi ne HCl 25 mg tablet 05/02 completed Not Available Not Available Not Available methylpre dnisolone 4 mg tablets in a dose pack Take 1 dose pk by oral route. 04/11 completed Not Available Not Available Not Available albuterol sulfate HFA 90 mcg/actua tion aerosol inhaler INHALE 2 PUFFS BY MOUTH 4 TIMES DAILY NEEDED active Not Available Not Available No t Available cefdinir 300 mg capsule Take 1 capsule every 12 hours by oral route as directed for 7 days. 04/11 completed Not Available Not Available Not Available medroxypr ogesteron e 150 mg/mL intramusc ular suspensio n Inject 1 mL every 3 months by intramus cular route. 04/11 completed Patient tolerate d injectio n well, RTC 3 months Not Available Not Available Not Available naproxen 500 mg tablet TAKE 1 TABLET BY MOUTH TWICE DAILY DIRECTED FOR 14 DAYS 03/12 completed Not Available Not Available Not Available methylphe nidate ER 36 mg tablet,ex tended release 24 hr TAKE 1 TABLET BY MOUTH IN THE MORNING ONCE DAILY 03/12 completed Not Available Not Available Not Available methylphe nidate ER 27 mg tablet,ex tended release 24 hr TAKE 1 TABLET BY MOUTH ONCE DAILY IN THE MORNING 03/12 completed Not Available Not Available Not Available medroxypr ogesteron e 150 mg/mL intramusc ular syringe INJECT 1ML (150 MG) BY INTRAMUS CULAR ROUTE ONCE EVERY 3 MONTHS 04/11 completed Not Available Not Available Not Available Lexapro 20 mg tablet Take 1 tablet every day by oral route. 05/05 completed Not Available Not Available Not Available atomoxeti ne 40 mg capsule TAKE 1 CAPSULE BY MOUTH ONCE DAILY 03/12 completed Not Available Not Available Not Available cyclobenz aprine 5 mg tablet Take 1 tablet 3 times a day by oral route as needed for 30 days. 04/11 completed Not Available Not Available Not Available quetiapin e 50 mg tablet active Not Available Not Available Not Available Voltaren 1 % topical gel Apply 2 g 3 times a day by topical route as needed for 14 days. 02/03 completed Not Available Not Available Not Available Calcium with Vitamin D 600 mg-10 mcg (400 unit) tablet Take 1 tablet twice a day by oral route as directed for 30 days. 03/12 completed Not Available Not Available Not Available Afluria Qd (36 mos up)(PF)60 mcg (15 mcg x4)/0.5 mL IM syringe ADM 0.5ML IM UTD 05/05 completed Not Available Not Available Not Available Vitals Date Recorded Body height Body mass index (BMI) Body weight Oxygen saturation Oxygen saturation in Arterial blood by Pulse oximetry Heart rate Body temperature Systolic And Diastolic Provider Name and Address Organization Details Last Updated DateTime 5 162.56 cm 30 kg/m2 88203.6 6 g 99 % 99 % 100 /min 98.1 [degF] 118/72 mm[Hg] Ada Bryan MA [place] - [facility] 5 09:20:27 Date Recorded Body height Body mass index (BMI) Body weight Body temperature Oxygen saturation Oxygen saturation in Arterial blood by Pulse oximetry Heart rate Systolic And Diastolic Provider Name and Address Organization Details Last Updated DateTime 5 162.56 cm 26.4 kg/m2 74037.8 2 g 98 [degF] 99 % 99 % 61 /min 112/68 mm[Hg] Dorothy Peralta MA [place] - [facility] 5 09:13:34 Date Recorded Body height Body mass index (BMI) Body weight Oxygen saturation Oxygen saturation in Arterial blood by Pulse oximetry Heart rate Systolic And Diastolic Provider Name and Address Organization Details Last Updated DateTime 4 162.56 cm 33.9 kg/m2 86100.1 3 g 98 % 98 % 75 /min 116/64 mm[Hg] Roxanna Mensah MA [facility] 4 09:58:28 Date Recorded Body height Body mass index (BMI) Body weight Body temperature Oxygen saturation Oxygen saturation in Arterial blood by Pulse oximetry Heart rate Systolic And Diastolic Provider Name and Address Organization Details Last Updated DateTime 3 162.56 cm 33.5 kg/m2 22110.9 4 g 98.6 [degF] 97 % 97 % 82 /min 118/68 mm[Hg] Viviana Garcia MA [facility] 3 12:30:33 Date Recorded Body height Body mass index (BMI) Body weight Oxygen saturation Oxygen saturation in Arterial blood by Pulse oximetry Heart rate Systolic And Diastolic Provider Name and Address Organization Details Last Updated DateTime 4 162.56 cm 32.1 kg/m2 72763.7 7 g 98 % 98 % 99 /min 118/70 mm[Hg] Ada Bryan MA [facility] 4 09:38:03 Social History Question Answer Notes LastModified by Organizat ion Details LastModified Time Tobacco Smoking Status Current Every Day Smoker Roxanna Mensah MA null, [place] - [facility] 03/12/2024 09:52:52 What Is Your Level Of Caffeine Consumption? Moderate Information not available 03/12/2024 In The 14 Days Before Symptom Onset, Have You Had Close Contact With A Laboratory-confirm ed COVID-19 While That Case Was Ill? No Information n ot available 08/05/2022 In The 14 Days Before Symptom Onset, Have You Had Close Contact With A Person Who Is Under Investigation For COVID-19 While That Person Was Ill? No Information not available 08/05/2022 Have You Been To An Area Known To Be High Risk For COVID-19? No Information not available 08/05/2022 Live Alone Or With Others? With Others Information not available 03/27/2019 What Was The Date Of Your Most Recent Tobacco Screening? 02/03/2025 Information not available 02/03/2025 How Many Children Do You Have? 1 Information not available 03/27/2019 Are You Sexually Active? Yes Information not available 03/27/2019 Do You Have Smoke And Carbon Monoxide Detectors In Your Home? Yes Information not available 08/05/2022 Are You Passively Exposed To Smoke? Yes Information no t available 08/05/2022 How Much Tobacco Do You Smoke? 1 PPW Information not available 02/04/2020 Has Tobacco Cessation Counseling Been Provided? No Information not available 08/05/2022 On What Date Was Tobacco Cessation Counseling Provided? 02/03/2025 Information not available 02/03/2025 Sex: Female Functional Status Question Answer Note LastModified by Organizat ion Details LastModified Time Do you use any illicit or recreational drugs? No Information not available 08/05/2022 What is your level of alcohol consumption? Occasional Information not available 03/12/2024 Do you or have you ever used smokeless tobacco? Never used smokeless tobacco Information not available 02/04/2020 Are you currently employed? Yes Information not available 03/27/2019 Are you able to care for yourself independently? Yes Information not available 03/27/2019 Do you or have you ever used e-cigarettes or vape? Never used electronic cigarettes Information not available 02/04/2020 Mental Status None recorded. Family History Relationship Description Onset Age of this Age Resolved Age Notes LastModified by Organization Details LastModified Time Father No current problems or disability [email or web address] Not available 03/27 09:20:13 Mother No current problems or disability [email or web address] Not available 03/27 09:20:13 Medical History Condition Response Depression Y Anxiety Disorder Y Gynecological History Statement/Question Response Date of LMP 01/18/2025 Menses Monthly Y Age at Menarche 12 Current Control Method None Age at First Child 27 LMP Approximate Obstetrics History GPAL:G 4 P 0 0 3 1 Type Value Spontaneous 3 Living 1 Total 4 Past Encounters Encounter ID Performer Location Encounter Start Date Encounter Closed Date Diagnosis/Indication Diagnosis SNOMED-CT Code Diagnosis ICD10 Code Diagnosis IMO Codes Diagnosis Note [id number] ADVIN LEUNG (Adult Med) [address] [place] [phone] 03/27/2019 09:00:26 03/28/2019 09:38:24 Strain of back muscle 418584633 S39.012A Complainin g of left sided back pain x 2 months, admits to bending over and quickly coming back up 2 months ago and since has been experienci gypsy painOn PE: left paraspinal muscle tenderness to palpationL ikely muscle strain of back- Will start short course of cyclobenza keesha to relax muscles, advised to take this at night because can cause drowsiness - Will write for voltaren gel, if not covered pickle sorter Biofreeze or IcyHot to rub into muscles- Will send referral for PT- Advised patient to:1. Modify your activity for 3-6 weeks. 2. Avoid heavy lifting 3. Use positions that promote comfort 4. Gradually resume activities as tolerated, which include gradually increasing low-stress aerobic exercise. 5. Ice for 20-30 minutes several times a day for the first 48 hours after pain started. 6. Apply heat for 20-30 minutes several times a day 48 hours after the pain started. 7. Healing can take up to 6 weeks 8. Strengthen ing exercises once back pain is gone. Adult heal th examination 633094537 Z00.00 PHQ 08/25 was negative in office today (0 out of 27) [id number] MD Adilia FunezsorJabari sanches [address] [place] [address] 01/06/2020 09:34:16 01/07/2020 07:35:12 Suspected COVID-19 865993785 Z03.149 [id number] DAVIN LEUNG (Adult Med) [facility] [place] [address] 02/04/2020 08:36:40 02/05/2020 11:16:02 Chest wall pain 606991260 R07.89 Two weeks of intermitte nt R sided rib pain that has increased to involving the muscles under her R breastShe describes her pain as an intermitte nt sharp/stab enoch painInitia lly 6/10 but now reaches a 10/10, worse with deep breathing, lifting objects, hole punching at work, and with the pressure of her bra in that areaShe intermitte ntly takes 600 mg Ibuprofen for mild relief of her painHer pain is relieved without movement/b reathingSh e denies any known injury, trauma, or skin changes to the areaOn PE: pt has tenderness to the R lateral ribs by her right breast. No nodules, rash, or deformitie s noted.- Advised the pt that this sounds muscular in nature and I am not concerned for any heart concerns- Ordered Naproxen 500 mg BID for 2 weeks- Advised the pt to use heat, avoid heavy lifting, and take the Naproxen daily for symptom relief- Provided the pt with costocondr itis and muscle strain instructio ns,- Follow up as needed if not improved in 2 weeks, if not improved will consider CXR Chronic cough 90610362 R 05 Coughing since Jun 2019, thinks that it is due to her smokingShe has mild clear sputum production with her coughNo family Hx of asthmaOn PE the pt has clear lungs bilaterall y with no wheezing, rhonchi, or rales noted- encouraged her to stop smoking- Ordered albuterol inhaler, use PRN- Ordered tessalon perles 100 mg TID for cough relief [id number] DAVIN LEUNG (Adult Med) [address] [place] [address] 02/14/2020 11:19:04 02/17/2020 14:53:07 Chest wall pain 096601313 R07.89 The pt had a phone visit on 02/04/2020, 1-2 weeks ago for intermitte nt, sharp, progressiv e R sided rib pain x 2 weeks. The pain came on gradually and was located anteriorly below the right breast. She complained of chronic cough x 6 months that she figured was due to her smoking.To day, she notes the pain seems to be getting worse and now is radiating towards the right aspect of her back near her scapula. The pain is sharp in nature, is worse with deep breaths, and notes she almost went to the ER for it the other night.She tried the naproxen, with food, and still caused her an upset stomach.Sh e notes the albuterol inhaler helped her cough greatly, although still mildly present.Ad mits to mild SOB.Denies pain with food intake or after eating. Denies known exposure to COVID.- CXR ordered to evalaute - continue with albuterol PRN since helping- if pain gets worse over the weekend, go to the ER- Will contact the pt with results Chronic cough 79863490 R 05 Coughing since Jun 2019, thinks that it is due to her smokingShe has mild clear sputum production with her coughCompl aining of R sided anterior rib pain underneath breast, worse with deep breaths and now radiation to R lower aspect of scapulaHas noted some improvemen t with albuterol inhalerAdm its to SOB and intermitte nt wheezing - encouraged her to stop smoking- Ordered albuterol inhaler, use PRN- Ordered CXR due to the chronicity of her cough- Ordered azithromyc in 250 mg to treat for possible PNA vs chronic cough- will send short course of steroids to help with possible inflammati on, stop naproxen since causing GI upset- Will contact the pt with CXR results [id number] MD Ailyn Dick [address] [place] [address] 06/26/2020 09:25:02 06/29/2020 08:39:16 Viral screening 962587853 Z11.59 D/w pt the current pandemic of COVID-19 and call for social isolation in order to blunt the curve and minimize risk and spread. Encouraged patient and family to take restrictio ns seriously. They have verbalized understand ing of such. [id number] DAVIN LEUNG (Adult Med) [address] [place] [phone] 05/02/2022 11:21:22 05/03/2022 10:12:01 Low back pain 779463632 M54.50 Pt complainin g of lower left back pain. Consider sciatica vs piriformis syndrome.- Consider starting PT; pt would like to hold off on starting PT at this time, will f/u if needed.-Pr ovided care instructio ns and at home exercises. -Continue taking Naproxen as needed. No refills necessary. 1.Avoid heavy lifting2. Use positions that promote comfort3. Gradually resume activities as tolerated, which include gradually increasing low-stress aerobic exercise.4 . Ice for 20-30 minutes several times a day for the first 48 hours after pain started.5. Apply heat for 20-30 minutes several times a day 48 hours after the pain started.6. Healing can take up to 6 weeks [id number] DAVIN LEUNG (Adult Med) [address] [place] [address] 08/05/2022 14:44:37 08/09/2022 10:22:48 Overweight 210893599 E66.3 Advised decreased portion sizes, good food choices, limited eating out or fast food and eliminate soda and juice from diet. Advised physical activity daily and offered encouragem ent to continue with positive changes made so far. Contraception care 15386 5005 Z30.40 Has been on depo for the last 2 years and doing well, she is amenorrhei c on this medication and has no SE. Not taking supplement s at home. Due for her next pap smear next year. Has no urinary or vaginal complaints today.- test negative- discussed long-term use of depo and concern for weakening of her bones, she states this is new informatio n to her. She struggled with all other forms of control and would like to continue despite bone weakening warning. Start supplement s- f/u q3 months for injections and annually for visits with me Low back pain 495180630 M54.50 Requesting refill on her cyclobenza keesha medication , states she has been going to the gym more often and has noticed her back feeling more tight- discussed proper lifting techniques and to focus on using her core when doing her leg exercises and instead of her back- supportive care including massage, topical medication s, rest, stretching , and massage- use medication as needed, can cause drowsiness [id number] DAVIN LEUNG (Adult Med) [address] [place] [address] 11/04/2022 15:13:00 11/08/2022 11:00:38 Contraception care 749610458 Z30.40 Has been on depo for the last 2 years and doing well, she is amenorrhei c on this medication and has no SE. Not taking supplement s at home. Due for her next pap smear next year. Has no urinary or vaginal complaints today.- test negative- discussed long-term use of depo and concern for weakening of her bones, she states this is new informatio n to her. She struggled with all other forms of control and would like to continue despite bone weakening warning. Start supplement s- f/u q3 months for injections and annually for visits with nv [id number] DAVIN LEUNG (Adult Med) [address] [place] [phone] 01/24/2023 11:15:22 01/25/2023 12:37:07 Contraception care 876119814 Z30.40 [id number] DAVIN LEUNG (Adult Med) [address] [place] [address] 03/16/2023 12:36:46 03/18/2023 08:43:59 Depression screening 169260001 Z13.31 PHQ 2/ was negative in office today (0 out of 27) Obesity 256319293 E66.9 Advised decreased portion sizes, good food choices, limited eating out or fast food and eliminate soda and juice from diet. Advised physical activity daily and offered encouragem ent to continue with positive changes made so far. Otalgia of left ear 1010 279842 H92.02 She developed left ear pain 1-2 months ago. She went to the and diagnosed with an ear infection and discharged home with amoxicilli n x 7 days (patient unsure if amoxicilli n or augmentin) . States the antibiotic s did not help.Admit s to swimming more this summer. No prior history of recurrent ear infections or MT as a child.- left EAC with white/yell ow wet debris in the canal blocking view of TM initially. Cleared out with irrigation . Wet cerumen vs discharge? After irrigation left TM: superior aspect cloudy with scattered areas of white opacificat ion- patient notes moderate improvemen t of pain after removal of debris from the left EAC- due to abnormal findings after irrigation , will start abx, steroids and ear drops- keep ear clean and dry and avoid swimming- f/u in 2 weeks [id number] DAVIN LEUNG (Adult Med) [address] [place] [phone] 04/11/2023 12:12:48 04/13/2023 16:06:10 Otalgia of left ear 5155005137 H92.02 Improved greatly after our last visit, having no complaint today Obesity 262047733 E66.9 Advised decreased portion sizes, good food choices, limited eating out or fast food and eliminate soda and juice from diet. Advised physical activity daily and offered encouragem ent to continue with positive changes made so far. Depressive disorder 1512 2926 F32.A Currently taking Quetiapine , guanfacine , trazodone, and hydroxyzin eFollowing with [place] for psych, requesting labs to monitor her health while on medicaiton s- labs ordered Contraception care 99080 5005 Z30.40 Interested in coming off depo, has been on depo for the last 3 years. She is not sexually active. She is requesting refill on naproxen to help with cramps if they return. Last shot was 01/24/2023- okay to come off depo, discussed possible long wait time for period to return and likely irregular cycles in the beginning History of drug abuse 37 2639351 F19.11 Hx of drug abuse and I got in major trouble in 2014, she started following with [place] at that time for detox and depression , she has continued to stay sober since then but still on her depression medication s. States she needs labs and UDS completed for her medication s.- ordered today [id number] [facility] [address] [place] [phone] 03/12/2024 09:28:23 03/13/2024 14:44:36 Smoker 22001314 F17.200 1 PPW Depression screening 171 753668 Z13.31 PHQ9- Negative (0 out of 27) Mental hea lt screening 717890973 Z13.39 GAD7- Negative (4 out of 21) Low back pain 261665664 M54.50 Start Meloxicam 15mg daily no other NSAIDS with this medication XR Ordered Cough 74261862 R05.9 Start Albuterol 2 puffs q4-6h as neededStop smoking Obesity 530454190 E66.8 BMI 33.9 Advised decreased portion sizes, good food choices, limited eating out or fast food and eliminate soda and juice from diet. Advised physical activity daily and offered encouragem ent to continue with positive changes. [id number] MD Ila Delgado (Adult Med) [address] [place] [address] 05/29/2024 09:23:11 06/18/2024 15:36:23 Screening for malignant neoplasm of cervix 424940493 Z12.4 Venereal d isease screening 837089407 Z11.3 Nicotine user 686860737 Z72.0 Not ready to quit now. Will continue to discuss. Body mass index 30+ - obesity 448474561 Z68.32 Encouraged her to try to get a regular exercise routine and work on healthy diet. Dealing with stress in her life now which she feels may be contributi ng to weight loss, along with stopping Depo. Advised her to try to establish an exercise routine and healthy diet which could help with weight loss and stress. If stress starts to affect quality of life or daily living by affecting sleep, diet, and/or motivation advised her to return to discuss. [id number] MD Ila Delgado (Adult Med) [address] [place] [phone] 07/23/2024 09:00:08 07/24/2024 11:05:26 Nicotine user 746258674 Z72.0 Advised her to avoid smoking. Acute sinusitis 04558786 J01.90 Treat with Augmentin BID. Reviewed side effects. Advised patient to keep doses twelve hours apart and take each pill with water to prevent diarrhea. Medical excuse for work through tomorrow. Let me know if she is not improving by the end of the week. Has follow up appointmen t in October. 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 Will treat with Valacyclov ir BID for three days. Then will continue one pill daily for prevention . Can increase to BID for three days if has outbreak. Hopefully she will have less frequent outbreaks. Will see how this is working for her at her follow up in three months. [id number] MD [facility] [address] [place] [phone] 02/03/2025 09:04:15 02/04/2025 15:02:02 Nicotine user 014393873 Z72.0 [id number] She has markedly decreased smoking. Mild inter mittent asthma 253073216 J45.20 [id number] She uses inhaler once a week or less. She believes the inhaler is over a year old so I will send out a new one. I advised her to let me know if she uses the inhaler more than three times a week or if she needs it during the night. She will follow up in one year or sooner if needed. Herpes labialis 1131836 B00.1 Uses Valacyclov ir for prevention . Has not had an oral lesion in some time. Will let me know if outbreaks increase in frequency. Health Concerns Section Related Observation LastModified by Organization Detai ls LastModified Time None Recorded Concern Status LastModified by Organization Details LastModified Time None Recorded Advance Directives Directive None Recorded Payers Insurance Date Sequence Insurance Name Policy Number Policy Tolentino Covered Member ID Tolentino Member ID Guarantor Name 03/12/2024 1 *SELF PAY* Carmen munoz Ketterdarrell 02/03/2025 1 [facility] [id number] Cori Mercerterer [id number] Dilma Ketterer 02/03/2025 1 [facility] (MEDICAID HMO) Dilma Mercerterer [id number] Dilma Ketterer 02/03/2025 1 [employer] [facility] ON OR AFTER 06/16/2020 (MEDICAID REPLACEMENT - HMO) Cori Ketterer [id number] Dilma Sylvieterer Notes Date Note Type Note Provider Name and Address Organization Details Recorded Time 04/11/2023 text/html 32 year old female presents today for routine check-up and for labs. She is following at [facility] DAVIN LEUNG Attn: [address] [place], [address], [facility] 04/11/2023 20:59:09 03/12/2024 text/html ROS as noted in the HPI 33 y/o F here to establish care. Pt is c/o R lower back pain that started a couple of weeks ago. States pain does not radiate to extremities or up back. Pain can start if she is just standing or walking. Denies injury to area. Has been taking ibuprofen with little to no relief.She is also c/o chronic cough. Admits to smoking 1 PPW and was on an inhaler before. Denies fevers, SOB, SAHNI, N/V/D. SAHRA EDWARDS PA-C Attn: [address] [place], [address], [facility] 03/12/2024 10:18:38 05/29/2024 text/html ROS as noted in the HPI here for women's health visit, annual exam, no history of abnormal PAP, no vaginal discharge, periods are not regular, periods were regular before Depo but have been irregular since discontinued Depo, recently discontinued Depo, is not interested in contraception at this time, would like to have another child, has a six year old, can go a couple months without period, sometimes bleeding is heavy, smoker for a year or two, smokes a half a pack a day, only smokes at night, has some back issues, no female cancers in family, Estela Anand MD Attn: [address] [place], [address], [facility] 05/29/2024 10:17:49 07/23/2024 text/html ROS as noted in the HPI sick visit, here for oral blisters, has gotten these before but never this bad, first started noticing redness on her lips on Monday, was red and burning, has been a few months since last outbreak, has not taken medicine, gets them maybe every three months, gets them when cold or lips chapped, having a sore throat, right ear keeps popping, no fevers or sweats, no particular stress, not sleeping well, hard time staying asleep for a couple months, son has been home for two weeks, Estela Anand MD Attn: Account[address] [place], [address], [facility] 07/23/2024 09:43:59 02/03/2025 text/html ROS as noted in the HPI here to establish care, no concerns or problems, treated for ADHD and anxiety, treated for asthma and oral herpes, still struggles to sleep, sees someone at [place] for thist, uses inhaler once a week, has not had outbreak of mouth sore in a long time, when has an outbreak increases pills to two a day, has taken pain medication for her back in the past but has not had much back pain since lost weight, has not been smoking this summer, once a week has a cigarette, no congestion, no shortness of breath, no cough, no chest pain, no stomach pain or nausea, no diarrhea or constipation, no skin rashes, no joint pains, working out and eating healthier, grandmother of lung cancer Estela Anand MD Attn: [address] , [place], [address], [place] [facility] 02/03/2025 18:36:59 OBGyn Episode Ob Episode Information Episode Created Date Number of Fetuses Patient Bloodtype Patient rh Status Prepregnancy Weight lbs Domestic Partner Domestic Partner Phone Father Name Fingernail Technician Status 03/27/20 19 1 CLOSED Fetus Data First Name Last Name Admitted to NICU Weight (g) Sex Living Outcome Pediatric Complications Fetus ID Race Codes Race Delivery Type Full Term [id number] Rocky Calculation Initial Rocky Date Initial Exam Date Initial Exam Provider Initial Ultrasound Date Last Menstrual Period Date Ultra Sound Weeks Gestation 0 Eighteen To Twenty Week Rocky Update Ultra Sound Date Fundal Height At Umbil Quickening Date Ultra Sound Latest Weeks Gestation Final Rocky Confirmed By Final Rocky Confirmed Date Final Rocky Date Ultra Sound Latest Days Gestation 0 0 Menstrual History Last Menstrual Date Menses Monthly On Bcp Conception Prior Menses Frequency Hcg Plus Date Menarche Onset Age Delivery Information Delivery Date Delivery Type Labor Anesthesia Weeks Gestation Incision Type Labor Labor Length Hrs Delivered By Post Complications Tubal Sterilization Discharge Date Comments 8 Discharge Information Feeding Method Contraceptive Method Maternal HG B and HCT Levels
--- OUTSIDE RECORDS SUMMARY | 2025-04-30 14:02 | XMS_ITS | Data Portability ---
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 07/24/2019 NILM, HPV-, Will need pap at 1st OB 6)RTC 4 weeks SANCHO with NOB labs 7) EDC: 10/29/2025 8) Confirmati on BMI: 25.6 Depression screening 171 [id number] Z13.31 [id number] PETER Osman [facility] [address] [place] [address] 04/03/2025 10:04:25 04/03/2025 11:53:29 Generalized anxiety disorder [id number] F41.1 [id number] -No changes will be made to psychiatri c medication s while the patient is under her current psychiatri st s care. -Patient advised to contact her psychiatri st to discuss - safe options and attempt to schedule an earlier appointmen t. -If her psychiatri st expresses discomfort managing her treatment during and formally relinquish es care, this provider will assume responsibi lity at that time. -Medical records will be obtained before transition to ensure safe continuity of care. -Patient reassured that Seroquel is generally considered safe in ; risks and benefits of stimulant use were briefly discussed. Health Concerns Section Related Observation LastModified by Organization Detai ls LastModified Time None Recorded Concern Status LastModified by Organization Details LastModified Time None Recorded Advance Directives Directive None Recorded Payers Insurance Date Sequence Insurance Name Policy Number Policy Tolentino Covered Member ID Tolentino Member ID Guarantor Name 04/17/2025 1 [employer] Cori S Ketterer [id number] Cori S Ketterer 04/17/2025 1 [employer] - DOS ON OR AFTER 2020 (MEDICAID REPLACEMENT - HMO) Cori S Ketterer [id number] Cori S Ketterer 04/17/2025 2 [place] Cori S Ketterer [id number] Cori S Ketterer 04/18/2025 1 [facility] [id number] Cori S Ketterer [id number] Cori S Ketterer 04/18/2025 2 [place] [employer] Cori S Ketterer [id number] Cori S Ketterer Notes Date Note Type Note Provider Name and Address Organization Details Recorded Time 5 text/html Irregular PeriodsReported by Patient AmenorrheaReported by Patient Menstrual IrregularityReported by Patient InfertilityReported by Patient Cori is a 34 year female here for missed period and possible , State her LMP was 01/22/25. Had three positive tests at home. Pt c/o of nausea. No other cocerns. Would like a note to confirm for the [facility] office. ANALIA FERRELL, CN [address], [place], [address], [facility] [address] [employer] 02/21/2025 18:06:49 5 text/html ROS as noted in the HPI Cori is here for pelvic pains for 1 weekpatient had pos UPT on 02/21/2025patient is 5 weeks today Savanah Starr, [facility] [address], [place], [address], [facility] [address] 03/03/2025 12:10:53 5 text/html ROS as noted in the HPI Pt presents for OB confirmation visit. Pt's LMP 01/22/2025. Pt is feels excited about . Pt denies bleeding, cramping, or n/v. Pt states she is currently taking gummy vitamin and Seroquel. Patient states she would just prefer to not take any medication. Pt has no other concerns. MALENA BLACKWELL, CLIENT TECHNICAL SPECIALIST [address], [place], [address], [facility] [address] 03/13/2025 13:29:11 5 text/html Patient Consent: Informed consent was provided to the patient for Telehealth service through the [facility] link. The patient is seen via secure audio/video telehealth from their stated location ofProvider location: home office Personal identifiers, including name and date of , were verified at the beginning of the session to confirm identity. *In the event of an emergency, the patient will be instructed to call 911 immediately. If the patient is unable to do so or is in distress during contact with the provider, the provider will take appropriate action and call 911 on the patient s behalf to ensure safety. CC: Well, obviously, I'm , and I've been on medicine before I got . HPI:The patient, Cori, a woman, reports a history of ADHD and anxiety previously managed with Vyvanse, Seroquel, buspirone, and trazodone. After discovering her , she stopped Vyvanse, buspirone, and trazodone, and is currently only taking Seroquel 100 mg, which she was told is safe. She notes that anxiety is her primary concern, while ADHD is more manageable. She discontinued Buspirone earlier due to perceived lack of benefit at a low dose (5mg daily)Cori reports that she currently sees a psychiatric provider at [facility] who manages her medications. States her next appointment is scheduled for next month and that she is not sure if her provider will treat her during . PETER Osman [address] [place], [address], [facility] 04/03/2025 10:38:56 OBGyn Episode Ob Episode Information Episode Created Date Number of Fetuses Patient Bloodtype Patient rh Status Prepregnancy Weight lbs Domestic Partner Domestic Partner Phone Father Name School Services Officer Status 10/01/19 22 1 CLOSED Fetus Data First Name Last Name Admitted to NICU Weight (g) Sex Living Outcome Pediatric Complications Fetus ID Race Codes Race Delivery Type [id number] Rocky Calculation Initial Rocky Date Initial Exam [...] Post Complications Tubal Sterilization Discharge Date Comments 5 None false Discharge Information Feeding Method Contraceptive Method Maternal HG B and HCT Levels Ob Episode Information Episode Created Date Number of Fetuses Patient Bloodtype Patient rh Status Prepregnancy Weight lbs Domestic Partner Domestic Partner Phone Father Name School Services Officer Status 10/01/19 22 1 CLOSED Fetus Data First Name Last Name Admitted to NICU Weight (g) Sex Living Outcome Pediatric Complications Fetus ID Race Codes Race Delivery Type [id number] Rocky Calculation Initial Rocky Date Initial Exam [...] Post Complications Tubal Sterilization Discharge Date Comments 5 None false Discharge Information Feeding Method Contraceptive Method Maternal HG B and HCT Levels Ob Episode Information Episode Created Date Number of Fetuses Patient Bloodtype Patient rh Status Prepregnancy Weight lbs Domestic Partner Domestic Partner Phone Father Name School Services Officer Status 10/01/19 22 1 DELETED Rocky Calculation Initial [place] Date Initial Exam Date Initial Exam Provider [...] Post Complications Tubal Sterilization Discharge Date Comments 5 None 43 false Discharge Information Feeding Method Contraceptive Method Maternal HG B and HCT Levels Ob Episode Information Episode Created Date Number of Fetuses Patient Bloodtype Patient rh Status Prepregnancy Weight lbs Domestic Partner Domestic Partner Phone Father Name School Services Officer Status 10/01/19 22 1 CLOSED Fetus Data First Name Last Name Admitted to NICU Weight (g) Sex Living Outcome Pediatric Complications Fetus ID Race Codes Race Delivery Type 2749.90 15 M Full Term [id number] Rocky Calculation Initial Rocky Date Initial Exam [...] Complications Tubal Sterilization Discharge Date Comments 8 39 false MARLINE Discharge Information Feeding Method Contraceptive Method Maternal HG B and HCT Levels Ob Episode Information Episode Created Date Number of Fetuses Patient Bloodtype Patient rh Status Prepregnancy Weight lbs Domestic Partner Domestic Partner Phone Father Name School Services Officer Status 03/12/20 25 1 CLOSED Fetus Data First Name Last Name Admitted to NICU Weight (g) Sex Living Outcome Pediatric Complications Fetus ID Race Codes Race Delivery Type , Induced 790756 Rocky Calculation Initial Rocky Date Initial Exam [...] Post Complications Tubal Sterilization Discharge Date Comments 9 Discharge Information Feeding Method Contraceptive Method Maternal HG B and HCT Levels
[2025-04-30] MEDS: DEXTROSE 5%/0.9% SOD CHL 1,000 ML 1000 ML IV CONT (14:24)
[2025-04-30 15:35] VITALS: BP 116/70; PULSE 76; RESP 16; O2SAT 100
== END 2025-04-30 15:36 | disposition home or self-care (01) ==
PROVIDERS: Student in an Organized Health Care Education/Training Program; Emergency Provider Student in an Organized Health Care Education/Training Program
DX: O21.9 Vomiting of pregnancy, unspecified (principal); N39.0 Urinary tract infection, site not specified; O23.42 Unspecified infection of urinary tract in pregnancy, second trimester; Z3A.14 14 weeks gestation of pregnancy
CPT/HCPCS: 36415; 80053; 81001; 81025; 83690; 85025; 96365; 96375; 99284; J0696; J2405; J7042

== ENCOUNTER 2025-06-10 10:42 | Observation (INO) | payer MEDICAID, SELFPAY ==
[2025-06-10] VITALS (7 sets, daily range): BP systolic 110–118; BP diastolic 73–76; PULSE 73–79; O2SAT 100; BMI 25.0
--- NOTE | 2025-06-10 11:15 | OBADM ---
This patient, Cori Martinez, admitted to the OB room 115 for observation. Patient/family oriented to hospital policies and general routines including ID bracelet, bed and alarms, visiting hours, pain management, procedures, bathroom and other care routines, personal items, smoking policy, room service/diet, and visiting hours. Patient/Family are encouraged to report perceived risks to care and to ask questions if they do not understand what they are told or what they should do.
--- NOTE | 2025-06-10 11:15 | PC.NURSE ---
Dr. Jen Shelton informed of this 19 6/7 wks gestation pt who ED informed me was feeling pressure and like she needed to push. When pt arrived, she is having urinary frequency and left upper jaw pain. She is concerned about having a UTI and a tooth infection. Pt has scheduled an office appointment with you, but hasn't been seen yet. She has had some at [facility]. Order received for UA and to send pt to his office at 1300 today and he will see her and do an U/S.
[2025-06-10 11:43] LABS: Add Urine Microscopic? YES; Appearance Urine Cloudy (Clear); Glucose Urine UA Negative (Negative); Leukocyte Esterase Ur Negative LEU/UL (Negative); Nitrate Urine Negative (Negative); Non Pathogenic Casts 0-2; Specific Grav Ur 1.030 (1.001-1.035)
--- NOTE | 2025-06-10 11:50 | PM.OBTRLD ---
OB - Triage/Final Diagnosis Visit Information Date of evaluation: 06/10/25 Reason for evaluation: threatened labor Comments/Additional reasons for admission: I have assessed the risk for this patient, Cori Martinez, and determined that she would benefit from observation care. Evaluation Vital signs: Vital Signs - 24 hr 06/10/25 11:07 06/10/25 11:12 06/10/25 11:13 Pulse Rate 77 Blood Pressure 110/73 Pulse Oximetry 100 100 100 06/10/25 11:15 06/10/25 11:18 06/10/25 11:23 Pulse Rate 78 Blood Pressure 118/76 Pulse Oximetry 100 100 06/10/25 11:28 Pulse Rate Blood Pressure Pulse Oximetry 100
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
== END 2025-06-10 12:46 | disposition home or self-care (01) ==
PROVIDERS: Admitting Provider Obstetrics & Gynecology; Visit Provider Obstetrics & Gynecology
DX: O47.02 False labor before 37 completed weeks of gestation, second trimester (principal); Z3A.19 19 weeks gestation of pregnancy
CPT/HCPCS: 81001; G0378; G0379